=== PATIENT | male | born 1975 | race Caucasian/White ===

== ENCOUNTER 2024-04-20 12:33 | Inpatient (IN) | payer BC ==
[~2024-04-20] VITALS: Ht 177.8 cm; Wt 84.0 kg
--- NOTE | 2024-04-20 13:08 | ED.PDOC ---
GI ASSESSMENT HPI Comments 48 Y M, presents to the ED with CC of abdominal pain. Patient relays, that he has been experiencing RLQ abdominal pain since 0230 on 04/19/24, with associated nausea. Patient smokes tobacco, denies ETOH consumption, or illicit drug use. Patient denies fever, chills, body aches, dysuria, or vomiting/diarrhea. Chief Complaint: Abdominal Pain Time Seen by MD: 12:57 Reviewed Notes: Nurses Notes, Medications, Allergies Allergies: Coded Allergies: NO KNOWN ALLERGIES (Unverified , 04/20/24) Information Source: Patient Mode of Arrival: Ambulatory Duration: Since onset Prehospital treatment: None Quality: None Vomitus: None Stool: Normal Severity: None Recent: None Recent Hx of: None Pain Location: RLQ Modifying Factors: Nothing Associated sign and symptoms: None Past Medical History PAST MEDICAL HISTORY: Denies Surgical History: Denies all surgeries Family History Family History: Unknown Social History Smoker: Cigarettes Alcohol: Denies ETOH Use Drugs: Denies Drug Use Lives In: Home Constitutional: denies: chills, diaphoresis, fatigue, fever, malaise, sweats, weakness, others EENTM: denies: blurred vision, double vision, ear bleeding, ear discharge, ear drainage, ear pain, ear ringing, eye pain, eye redness, hearing loss, mouth pain, mouth swelling, nasal discharge, nose bleeding, nose congestion, nose pain, photophobia, tearing, throat pain, throat swelling, voice changes, others Respiratory: denies: cough, hemoptysis, orthopnea, SOB at rest, shortness of breath, SOB with excertion, stridor, wheezing, others Cardiovascular: denies: chest pain, dizzy spells, diaphoresis, Dyspnea on exer tion, edema, irregular heart beat, left arm pain, lightheadedness, palpitations, PND, syncope, others Gastrointestinal: reports: abdominal pain, nausea; denies: abdomen distended, blood streaked bowels, constipated, diarrhea, dysphagia, difficulty swallowing, hematemesis, melena, poor appetite, poor fluid intake, rectal bleeding, rectal pain, vomiting, others Genitourinary: denies: burning, dysuria, flank pain, frequency, hematuria, incontinence, penile discharge, penile sore, pain, testicle pain, testicle swelling, urgency, others Neurological: denies: dizziness, fainting, headache, left sided numbness, left sided weakness, numbness, paresthesia, pre-existing deficit, right sided numbness, right sided weakness, seizure, speech problems, tingling, tremors, weakness, others Musculoskeletal: denies: back pain, gout, joint pain, joint swelling, muscle pain, muscle stiffness, neck pain, others Integumetry: denies: bruises, change in color, change in hair/nails, dryness, laceration, lesions, lumps, rash, wounds, others Allergic/Immunocompromised: denies: Difficulty Healing, Frequent Infections, Hives, Itching, others Hematologic/Lymphatic: denies: anemia, blood clots, easy bleeding, easy bruising, swollen glands, others Endocrine: denies: excessive hunger, excessive sweating, excessive thirst, excessive urination, flushing, intolerance to cold, intolerance to heat, unexplained weight gain, unexplained weight loss, others Psychiatric: denies: anxiety, bipolar disorder, depression, hopeless, panic disorder, schizophrenia, sleepless, suicidal, others All Other Systems: Reviewed and Negative Physical Exam General Appearance: Moderate Distress HEENT: Normal ENT Inspection, Pharynx Normal, TMs Normal Neck: Full Range of Motion, Non-Tender, Normal, Normal Inspection Respiratory: Chest Non-Tender, Lungs Clear, No Accessory Muscle Use, No Respiratory Distress, Normal Breath Sounds Cardiovascular: No Edema, No JVD, No Murmur, No Gallop, Normal Peripheral Pulses, Regular Rate/Rhythm Breast Exam: Deferred Gastrointestinal: No Organomegaly, No Pulsatile Mass, Normal Bowel Sounds, RLQ, Soft, Tenderness Genitalia: Deferred Pelvic: Deferred Rectal: Deferred Extremities: No calf tenderness, Normal capillary refill, Normal inspection, Normal range of motion, Non-tender, No pedal edema Musculoskeletal : Apperance: Normal Neurologic: Alert, office auditor II-XII nml as Tested, No Motor Deficits, Normal Affect, Normal Mood, No Sensory Deficits Cerebellar Function: Normal Reflexes: Normal Skin: Dry, Normal Color, Warm Lymphatic: No Adenopathy Was a procedure done? Was a procedure done?: No GI differential Dx Differential Diagnosis: Appendicitis, Cholangitis, Cholecystitis, Gastritis/PUD, Gastroenteritis X-Ray, Labs, Meds, VS Vital Signs Date Time Temp Pulse Resp B/P (MAP) Pulse Ox O2 Delivery O2 Flow Rate FiO2 04/20/24 14:40 98.4 101 18 138/82 (100) 94 98.4 04/20/24 14:40 98.9 04/20/24 13:41 101.1 04/20/24 13:29 126 17 98 Room Air 04/20/24 13:29 101.1 126 17 114/77 (89) 98 101.1 04/20/24 12:45 99.4 134 18 133/76 (95) 96 Lab Test 04/20/24 13:17 Range/Units White Blood Count 14.9 H 4.4-10.8 10^3/uL Red Blood Count 4.94 4.5-5.90 10^6/uL Hemoglobin 14.7 13.5-17.5 g/dL Hematocrit 43.8 41.0-53.0 % Mean Corpuscular Volume 88.7 80.0-100.0 fL Mean Corpuscular Hemoglobin 29.7 28.0-32.0 pg Mean Corpuscular Hemoglobin Concent 33.5 32.0-36.0 g/dL Red Cell Distribution Width 13.4 11.8-14.3 % Platelet Count 240 140-450 10^3/uL Mean Platelet Volume 8.4 6.9-10.8 fL Neutrophils (%) (Auto) 92.6 H 37.0-80.0 % Lymphocytes (%) (Auto) 4.4 L 10.0-50.0 % Monocytes (%) (Auto) 2.9 0.0-12.0 % Eosinophils (%) (Auto) 0.0 0.0-7.0 % Basophils (%) (Auto) 0.1 0.0-2.0 % Neutrophils # (Auto) 13.8 H 1.6-8.6 10 ^3/uL Lymphocytes # (Auto) 0.7 0.4-5.4 10 ^3/uL Monocytes # (Auto) 0.4 0-1.3 10 ^3/uL Eosinophils # (Auto) 0 0-0.8 10 ^3/uL Basophils # (Auto) 0 0-0.2 10 ^3/uL Nucleated Red Blood Cells 0.0 % Prothrombin Time 10.9 9.3-11.8 sec Prothrombin Time INR 1.03 0.9-1.15 Activated Partial Thromboplast Time 27.3 24.5-34.5 SEC Sodium Level 135 L 136-145 mmol/L Potassium Level 4.3 3.5-5.1 mmol/L Chloride Level 106 98-107 mmol/L Carbon Dioxide Level 26 20-31 mmol/L Anion Gap 3 L 5-15 Blood Urea Nitrogen 13 9-23 mg/dL Creatinine 1.12 0.700-1.30 mg/dL Glomerular Filtration Rate Calc 82 >90 mL/min BUN/Creatinine Ratio 11.6 10.0-20.0 Serum Glucose 114 H 74-106 mg/dL Calcium Level 10.2 8.7-10.4 mg/dL Current Medications Medications (Trade) Dose Ordered Sig/Nathan Route Start Time Stop Time Status Last Admin Ondansetron HCl (Zofran) 4 mg ONCE ONCE IV 04/20/24 13:15 04/20/24 13:16 DC 04/20/24 13:44 Sodium Chloride 1,000 ml @ 1,000 mls/hr Q1H ONCE IVB 04/20/24 13:15 04/20/24 14:14 DC 04/20/24 13:44 Ketorolac Tromethamine (Toradol Injection) 30 mg ONCE ONCE IV 04/20/24 13:15 04/20/24 13:16 DC 04/20/24 13:44 Acetaminophen (Tylenol Tablet Or Capsule) 1,000 mg ONCE ONCE PO 04/20/24 13:45 04/20/24 13:46 DC 04/20/24 13:41 Piperacillin Sod/ Tazobactam Sod 100 ml @ 100 mls/hr ONCE ONCE IV 04/20/24 14:15 04/20/24 15:14 DC 04/20/24 14:20 CT ABD PEL: FINDINGS: Right basilar atelectasis. Partially visualized heart is unremarkable. Liver, spleen, gallbladder, pancreas and adrenal glands unremarkable. Kidneys, ureters and urinary bladder unremarkable. Prostate is unremarkable. Tiny hiatal hernia. Mild gastric wall thickening. Small bowel loops unremarkable. Appendix measures up to 7 mm with fat stranding adjacent to the appendix and right paracolic gutter. Scattered colonic diverticulosis without diverticulitis. The large bowel is otherwise unremarkable. No evidence of intraperitoneal free air or free fluid. No evidence of aortic aneurysm. Minimal atherosclerotic calcification of the aorta and bilateral iliacs. Small fat containing left inguinal hernia. Minimal fat stranding of the bilateral posterolateral hip subcutaneous fat. No destructive Osseous lesions are noted. IMPRESSION: Appendix measures up to 7 mm with fat stranding adjacent to the appendix and right paracolic gutter. Correlate for acute appendicitis. Mild gastric wall thickening. Correlate for mild gastritis. ATED BY: ISABEL ROGER DO DICTATED DATE/TIME: 04/20/241336 SIGNED BY: ISABEL ROGER DO SIGNED DATE/TIME: 04/20/241336 CC: IV Hep-Lock was established. The patient was given Zofran 4 mg IV push for the nausea The patient was given a 1 L bolus of normal saline For the pain, the patient was given ketorolac 30 mg IV push The patient was also given acetaminophen 1000 mg p.o. for the fever At this time, the patient had a CT scan which shows a acute appendicitis We called Dr. Cuadra who is the surgeon on-call. The patient was then taken to the operating room. In the meantime, the patient was also given Zosyn IV piggyback The patient was also typed and screened The patient was admitted Images Reviewed?: Images reviewed and evaluated by me Time of 1ST Reevaluation: 13:27 Reevaluation 1ST: Unchanged Patient Education/Counseling: Diagnosis, Treatment, Prognosis Family Education/Counseling: No Family Present Departure 1 Departure Time of Disposition: 15:27 Impression: Primary Impression: Intractable abdominal pain Additional Impression: Acute appendicitis Qualified Codes: K35.80 - Unspecified acute appendicitis Disposition: ADMITTED INPATIENT Admit to: Med Surg Condition: Fair Critical Care Note Critical Care Time?: No Stability Stability form required: Yes Unstable for transfer: ED Physician Assesment (Clinical assesment) Heart Score Heart Score: Heart Score Response (Comments) Value History N/A 0 EKG N/A 0 Age N/A 0 Risk Factors N/A 0 Troponin N/A 0 Total 0 I personally scribed for FARNAZ ROBISON MD ([email or web address]) on 04/20/24 at 13:08. Electronically submitted by Karen Purcell ([email or web address]). I personally scribed for FARNAZ ROBISON MD ([email or web address]) on 04/20/24 at 13:59. Electronically submitted by Karen Purcell ([email or web address]). I personally scribed for FARNAZ ROBISON MD ([email or web address]) on 04/20/24 at 14:13. Electronically submitted by Karen Purcell [email or web address]). FARNAZ ROBISON MD Apr 20, 2024 13:08
--- NOTE | 2024-04-20 13:39 | DVH ---
Exam: CT CT AB PEL WO CON-NO ORAL OR IV History: rlq pain Comparison Study: None available at time of dictation. TECHNIQUE: Multidetector CT of the abdomen and pelvis without contrast. Axial, coronal and sagittal m ultiplanar reformats were obtained from the axial data set by the technologist. Radiation Dose Information: CT Dose: CTDI volume is 7.83 mGy. Dose-length product is 479.2 mGy*cm FINDINGS: Right basilar atelectasis. Partially visualized heart is unremarkable. Liver, spleen, gallbladder, pancreas and adrenal glands unremarkable. Kidneys, ureters and urinary bladder unremarkable. Prostate is unremarkable. Tiny hiatal hernia. Mild gastric wall thickening. Small bowel loops unremarkable. Appendix measures up to 7 mm with fat stranding adjacent to the appendix and right paracolic gutter. Scattered colonic diverticulosis without diverticulitis. The large bowel is otherwise unremarkable. No evidence of intraperitoneal free air or free fluid. No evidence of aortic aneurysm. Minimal atherosclerotic calcification of the aorta and bilateral tiffany acs. Small fat containing left inguinal hernia. Minimal fat stranding of the bilateral posterolateral hip subcutaneous fat. No destructive Osseous lesions are noted. IMPRESSION: Appendix measures up to 7 mm with fat stranding adjacent to the appendix and right paracolic gutter. Correlate for acute appendicitis. Mild gastric wall thickening. Correlate for mild gastritis.
[2024-04-20] MEDS: ACETAMINOPHEN 500 MG TAB or CAP PO ONE (13:41)
[2024-04-20] MEDS: KETOROLAC TROMETH 30 MG/ML 1ML VIAL IV ONE ×2 (13:44→17:50)
[2024-04-20] MEDS: ONDANSETRON HCL 4 MG/2 ML VIAL IV ONE ×2 (13:44→17:30)
[2024-04-20] MEDS: SODIUM CHLORIDE 0.9% 1,000 ML IVB ONE (13:44)
[2024-04-20 13:51] LABS: Chloride 106 mmol/L (98-107); Potassium 4.3 mmol/L (3.5-5.1)
[2024-04-20 13:52] LABS: Anion Gap 3 (5-15); Carbon Dioxide 26 mmol/L (20-31)
[2024-04-20 13:53] LABS: Calcium 10.2 mg/dL (8.7-10.4)
[2024-04-20 13:54] LABS: Sodium 135 mmol/L (136-145)
[2024-04-20 13:57] LABS: BUN/Creatinine Ratio 11.6 (10.0-20.0); Blood Urea Nitrogen 13 mg/dL (9-23)
[2024-04-20 14:13] LABS: Glucose 114 mg/dL (74-106)
[2024-04-20 14:14] LABS: Basophils # (auto) 0 10 ^3/uL (0-0.2); Basophils % (auto) 0.1 % (0.0-2.0); Eosinophils # (auto) 0 10 ^3/uL (0-0.8); Hematocrit 43.8 % (41.0-53.0); Hemoglobin 14.7 g/dL (13.5-17.5); Lymphocytes # (auto) 0.7 10 ^3/uL (0.4-5.4); Lymphocytes % (auto) 4.4 % (10.0-50.0); Mean Corpuscular Hemoglobin 29.7 pg (28.0-32.0); Mean Corpuscular Hgb Conc. 33.5 g/dL (32.0-36.0); Mean Corpuscular Volume 88.7 fL (80.0-100.0); Monocytes # (auto) 0.4 10 ^3/uL (0-1.3); Monocytes % (auto) 2.9 % (0.0-12.0); Neutrophils # (auto) 13.8 10 ^3/uL (1.6-8.6); Neutrophils % (auto) 92.6 % (37.0-80.0); Platelet Count (auto) 240 10^3/uL (140-450); Red Blood Cells 4.94 10^6/uL (4.5-5.90); Red Cell Distribution Width 13.4 % (11.8-14.3); White Blood Cell 14.9 10^3/uL (4.4-10.8)
[2024-04-20] MEDS: PIPERACILLIN-TAZOB 3.375GM 100 ML IV ONE (14:20)
[2024-04-20 14:38] LABS: INR 1.03 (0.9-1.15); Partial Thromboplastin Time 27.3 SEC (24.5-34.5); Prothrombin Time 10.9 sec (9.3-11.8)
[2024-04-20] MEDS: SODIUM CHLORIDE 0.9% 1,000 ML IV ONE (15:00)
--- NOTE | 2024-04-20 15:12 | DVHHP2 ---
History of Present Illness Reason for Visit: Abdominal pain History of Present Illness 48-year-old male no medical history surgical history chief complaint patient complain of abdominal pain he has been dealing with a since this morning. Patient states the abdominal pain accompanied some nausea and vomiting. He states the pain in his right lower quadrant he did not have subjective fevers. He denies any chest pain no shortness with the breath patient states he has not had any issues with medical problems in the past this is like his first time in the hospital since he was a kid. When evaluating patient's labs and imaging CT scan of the abdomen pelvis shows appendicitis without perforation abscess and gastritis. White count was 14.9 sodium was 135 otherwise CBC and CMP unremarkable Tylenol Toradol normal saline was provided Zofran. With these findings we will admit and ask for General surgery evaluation Past Medical History Denies any medical history Past Surgical History Denies surgical history Family History Reviewed, non-contributory to the management of this case. Past Social History The patient lives at home, denies smoking, alcohol or illicit drugs abuse. Review of Systems Constitutional: No: Fever, Chills, Sweats, Weakness, Malaise, Other Eyes: No: Pain, Vision change, Conjunctivae inflammation, Eyelid inflammation, Other, Redness ENT: No: Ear pain, Ear discharge, Nose pain, Nose discharge, Nose congestion, Mouth pain, Mouth swelling, Throat pain, Throat swelling, Other Respiratory: No: Cough, Dry, Shortness of breath, SOB with excertion, Wheezing, Hemoptysis, Pleuritic Pain, Sputum, Wheezing, Other Cardiovascular: No: Chest Pain, Palpitations, Orthopnea, Paroxysmal Noc. Dyspnea, Edema, Lt Headedness, Other Gastrointestinal: Nausea, Vomiting, Abdominal Pain; No: Diarrhea, Constipation, Melena, Hematochezia, Other Genitourinary: No Dysuria, No Frequency, No Incontinence, No Hematuria, No Retention, No Other Musculoskeletal: No: other, neck pain, shoulder pain, arm pain, back pain, hand pain, leg pain, foot pain Skin: No: Rash, Lesions, Jaundice, Bruising, Other Neurological: No: Weakness, Numbness, Incoordination, Change in speech, Confusion, Seizures, Other Allergies: Coded Allergies: NO KNOWN ALLERGIES (Unverified , 04/20/24) Exam Vital Signs Vital Signs Date Time Temp Pulse Resp B/P (MAP) Pulse Ox O2 Delivery O2 Flow Rate FiO2 04/20/24 14:40 98.4 101 18 138/82 (100) 94 98.4 04/20/24 13:29 Room Air General Appearance: Alert, Oriented X3, Cooperative, No acute distress HEENT: Atraumatic, PERRLA, EOMI, Mucous membr. moist/pink Respiratory: Clear to auscultation, Normal air movement Cardiovascular: Regular rate, Normal S1, Normal S2, No murmurs Abdominal: Normal bowel sounds, Soft, Other (right lower abd pain guarding rebound tenderness ) Extremities: No clubbing, No cyanosis, No edema, Normal pulses, No tenderness/swelling Skin: No rashes, No breakdown, No significant lesion Neuro: Normal gait, Normal speech, Strength at 5/5 X4 ext, Normal tone, Sensation intact, Cranial nerves 3-12 NL Psych/Mental Status: Mental status NL, Mood NL Labs/Xrays CT scan of the abdomen and pelvis found to have acute appendicitis without abscess or perforation and gastritis I reviewed labs, imaging CT scan abdomen pelvis, EKG and all diagnostic studies on this patient from ED records and the medical chart Labs Test 04/20/24 13:17 Range/Units White Blood Count 14.9 H 4.4-10.8 10^3/uL Red Blood Count 4.94 4.5-5.90 10^6/uL Hemoglobin 14.7 13.5-17.5 g/dL Hematocrit 43.8 41.0-53.0 % Mean Corpuscular Volume 88.7 80.0-100.0 fL Mean Corpuscular Hemoglobin 29.7 28.0-32.0 pg Mean Corpuscular Hemoglobin Concent 33.5 32.0-36.0 g/dL Red Cell Distribution Width 13.4 11.8-14.3 % Platelet Count 240 140-450 10^3/uL Mean Platelet Volume 8.4 6.9-10.8 fL Neutrophils (%) (Auto) 92.6 H 37.0-80.0 % Lymphocytes (%) (Auto) 4.4 L 10.0-50.0 % Monocytes (%) (Auto) 2.9 0.0-12.0 % Eosinophils (%) (Auto) 0.0 0.0-7.0 % Basophils (%) (Auto) 0.1 0.0-2.0 % Neutrophils # (Auto) 13.8 H 1.6-8.6 10 ^3/uL Lymphocytes # (Auto) 0.7 0.4-5.4 10 ^3/uL Monocytes # (Auto) 0.4 0-1.3 10 ^3/uL Eosinophils # (Auto) 0 0-0.8 10 ^3/uL Basophils # (Auto) 0 0-0.2 10 ^3/uL Nucleated Red Blood Cells 0.0 % Prothrombin Time 10.9 9.3-11.8 sec Prothrombin Time INR 1.03 0.9-1.15 Activated Partial Thromboplast Time 27.3 24.5-34.5 SEC Sodium Level 135 L 136-145 mmol/L Potassium Level 4.3 3.5-5.1 mmol/L Chloride Level 106 98-107 mmol/L Carbon Dioxide Level 26 20-31 mmol/L Anion Gap 3 L 5-15 Blood Urea Nitrogen 13 9-23 mg/dL Creatinine 1.12 0.700-1.30 mg/dL Glomerular Filtration Rate Calc 82 >90 mL/min BUN/Creatinine Ratio 11.6 10.0-20.0 Serum Glucose 114 H 74-106 mg/dL Calcium Level 10.2 8.7-10.4 mg/dL Assessment/Plan Assessment/Plan acute appendicitis without abscess found on ct scan order N.p.o. for now ordered zosyn IV fluids ordered General surgery consult follow-up recs Type and screen ordered Morphine and Zofran ordered Protonix acute leukocytosis ordered zosyn acute gastritis ordered protonix fen/ppx npo ivf scd no dvt ppx since pt is ambulatory protonix for now plan admit to medicine for surgical consult Plan discussed with: Patient Date of Service: Apr 20, 2024 Billing Provider: DIMA KHALIL DNP Common Visit Codes: 31009-[id number] INP/OBS CARE (HIGH) DIMA KHALLI DNP Apr 20, 2024 15:12
[2024-04-20] MEDS: SODIUM CHLORIDE 0.9% 2,200 ML IV ONE (15:15)
[2024-04-20] MEDS ORDERED: fentaNYL CITRATE 100 MCG/2 ML VL ONE (15:49)
[2024-04-20] MEDS ORDERED: MEPERIDINE HCL (25 MG/ML) 1ML VIAL ONE (15:49)
[2024-04-20] MEDS ORDERED: MIDAZOLAM HCL 2MG/2ML 2ml VIAL (1mg/ml) ONE (15:49)
[2024-04-20] MEDS: SODIUM CHLORIDE 0.9% 1,000 ML IV SCH (16:00)
[2024-04-20] MEDS ORDERED: DOCUSATE SOD 100 MG CAP PO PRN (16:00)
[2024-04-20] MEDS ORDERED: NITROGLYCERIN 0.4 MG SL TAB SL PRN (16:00)
[2024-04-20] MEDS ORDERED: TEMAZEPAM 15 MG CAP PO PRN (16:00)
[2024-04-20] MEDS ORDERED: ONDANSETRON HCL 4 MG/2 ML VIAL IV PRN (16:00)
--- NOTE | 2024-04-20 16:12 | DVHINCON2 ---
Date of service: Apr 20, 2024 Allergies: Coded Allergies: NO KNOWN ALLERGIES (Unverified , 04/20/24) Current Medications Current Medications Medications (Trade) Dose Ordered Sig/Nathan Route PRN Reason Start Time Stop Time Status Last Admin Piperacillin Sod/ Tazobactam Sod 100 ml @ 25 mls/hr Q6HR IV 04/20/24 18:00 UNV Sodium Chloride 1,000 ml @ 120 mls/hr Q8H20M IV 04/20/24 16:00 UNV Temazepam (Restoril) 15 mg QHSP PRN PO FOR INSOMNIA 04/20/24 16:00 UNV Ondansetron HCl (Zofran) 4 mg Q4HP PRN IV NAUSEA / VOMITING 04/20/24 16:00 UNV Docusate Sodium (Colace Capsule) 100 mg BIDPRN PRN PO FOR CONSTIPATION 04/20/24 16:00 UNV Morphine Sulfate 2 mg Q4HPRN PRN IV SEVERE PAIN (7-10 PAIN SCALE) 04/20/24 16:00 UNV Nitroglycerin (Ntrostat Sublingual) 0.4 mg Q5MINP PRN SL FOR CHEST PAIN 04/20/24 16:00 UNV Vital Signs Vital Signs Date Time Temp Pulse Resp B/P (MAP) Pulse Ox O2 Delivery O2 Flow Rate FiO2 04/20/24 14:40 98.4 101 18 138/82 (100) 94 98.4 04/20/24 13:29 Room Air Labs/Diagnostic Data Labs Test 04/20/24 13:17 Range/Units White Blood Count 14.9 H 4.4-10.8 10^3/uL Red Blood Count 4.94 4.5-5.90 10^6/uL Hemoglobin 14.7 13.5-17.5 g/dL Hematocrit 43.8 41.0-53.0 % Mean Corpuscular Volume 88.7 80.0-100.0 fL Mean Corpuscular Hemoglobin 29.7 28.0-32.0 pg Mean Corpuscular Hemoglobin Concent 33.5 32.0-36.0 g/dL Red Cell Distribution Width 13.4 11.8-14.3 % Platelet Count 240 140-450 10^3/uL Mean Platelet Volume 8.4 6.9-10.8 fL Neutrophils (%) (Auto) 92.6 H 37.0-80.0 % Lymphocytes (%) (Auto) 4.4 L 10.0-50.0 % Monocytes (%) (Auto) 2.9 0.0-12.0 % Eosinophils (%) (Auto) 0.0 0.0-7.0 % Basophils (%) (Auto) 0.1 0.0-2.0 % Neutrophils # (Auto) 13.8 H 1.6-8.6 10 ^3/uL Lymphocytes # (Auto) 0.7 0.4-5.4 10 ^3/uL Monocytes # (Auto) 0.4 0-1.3 10 ^3/uL Eosinophils # (Auto) 0 0-0.8 10 ^3/uL Basophils # (Auto) 0 0-0.2 10 ^3/uL Nucleated Red Blood Cells 0.0 % Prothrombin Time 10.9 9.3-11.8 sec Prothrombin Time INR 1.03 0.9-1.15 Activated Partial Thromboplast Time 27.3 24.5-34.5 SEC Sodium Level 135 L 136-145 mmol/L Potassium Level 4.3 3.5-5.1 mmol/L Chloride Level 106 98-107 mmol/L Carbon Dioxide Level 26 20-31 mmol/L Anion Gap 3 L 5-15 Blood Urea Nitrogen 13 9-23 mg/dL Creatinine 1.12 0.700-1.30 mg/dL Glomerular Filtration Rate Calc 82 >90 mL/min BUN/Creatinine Ratio 11.6 10.0-20.0 Serum Glucose 114 H 74-106 mg/dL Calcium Level 10.2 8.7-10.4 mg/dL Assessment [id number] AC APPENDICITIS LAP/OPEN APPENDECTOMY Plan discussed with: Patient LOIS CHOWDHURY MD Apr 20, 2024 16:12
--- NOTE | 2024-04-20 16:17 | DVHINCON2 ---
DATE OF CONSULTATION: 04/20/2024 HISTORY OF PRESENT ILLNESS: This patient is 48 years old, coming in with right lower abdominal pain, started this morning. Came to the Emergency Room. Some nausea. No vomiting, no constipation or diarrhea. No hematemesis or melena. No bleeding per rectum. PAST MEDICAL HISTORY: No diabetes, hypertension. PAST SURGICAL HISTORY: Hunters teeth extraction. PHYSICAL EXAMINATION: VITAL SIGNS: Afebrile, stable signs. HEENT: With no evidence of pallor, cyanosis, or jaundice. NECK: Supple, nontender with no thyromegaly, lymphadenopathy. CHEST AND LUNGS: Clear. HEART: Within normal limits. ABDOMEN: Soft, tender in the right lower quadrant, evidence of rebound. EXTREMITIES: Unremarkable. NEUROLOGIC: He is intact. CLINICAL IMPRESSION: Acute appendicitis. PLAN: Laparoscopic, possible open appendectomy. Benefits, risks discussed and a consent obtained. MD CYRIL Bowling/RALEIGH TID: [id number] RECEIPT: [id number] cc: Simin Andrea
[2024-04-20] MEDS ORDERED: ONDANSETRON HCL 4 MG/2 ML VIAL ONE (16:47)
[2024-04-20] MEDS ORDERED: DexAMETHasone SOD PHOS 10MG/1ML VIAL INJ ONE (16:47)
[2024-04-20] MEDS ORDERED: PROPOFOL 10 MG/ML 20 ML IV ONE (16:47)
[2024-04-20] MEDS ORDERED: SUGAMMADEX 200mg/2ml Vial (100MG/ML) IV ONE (17:17)
[2024-04-20] MEDS ORDERED: MORPHINE SULFATE 4 MG/ML SYR/VIAL IV PRN (17:30)
[2024-04-20] MEDS ORDERED: ePHEDrine SULFATE 50 MG/ML AMP IV PRN (17:30)
[2024-04-20] MEDS ORDERED: HYDROmorphone HCL 2 MG/ML VL/or syr IV PRN (17:30)
[2024-04-20] MEDS ORDERED: hydrALAZINE HCL 20 MG/ML VL IV PRN (17:30)
[2024-04-20] MEDS ORDERED: fentaNYL CITRATE 100 MCG/2 ML VL IV PRN (17:30)
[2024-04-20] MEDS ORDERED: MIDAZOLAM HCL 2MG/2ML 2ml VIAL (1mg/ml) IV PRN (17:30)
--- NOTE | 2024-04-20 17:30 | DVHOP2 ---
Operative Report [id number] AC APPENDICITIS INTRAABD ABSCESS DRAIN INTRAABD ABSCESS LAP APPENDECTOMY EBL 25 CC NO DRAINS NO COMPLICATIONS LOIS CHOWDHURY MD Apr 20, 2024 17:30
[2024-04-20 17:40] VITALS: PULSE 101; RESP 11; O2SAT 95
--- NOTE | 2024-04-20 17:55 | DVHOP ---
DATE OF SURGERY: 04/20/2024 PREOPERATIVE DIAGNOSES: * Acute appendicitis. * Intra-abdominal abscess. POSTOPERATIVE DIAGNOSES: * Acute appendicitis. * Intra-abdominal abscess. PROCEDURE: Drainage of intra-abdominal abscess with laparoscopic appendectomy. SURGEON: Dr. Lux Cuadra. METAL FABRICATOR: None. ANESTHESIA: General. ESTIMATED BLOOD LOSS: Close to 25 mL. DRAINS: No drains were used. COMPLICATIONS: No complications were encountered. DESCRIPTION OF PROCEDURE: The patient was prepped and draped in the usual sterile fashion in the supine position, and a supraumbilical incision was applied and was taken down to the fascia. The Veress needle was introduced, and CO2 insufflation was started to a pressure of 15 mmHg. The needle was withdrawn, replaced by the 12 mm trocar, and a telescope introduced and the appendix was found acutely inflamed, distended and closely adherent to the right lower abdomen. Intraabdominal abscess was also noted. Two 5 mm ports were applied more inferiorly, one above the symphysis, one between the upper two. The patient was placed in Trendelenburg and in right upper lateral position, the abscess was drained out. The camera was moved to the lowermost 5 mm port. The operative ports were used for surgery. The mesoappendix was clipped at the base, divided distal to that using Harmonic device. The base of the appendix was cleared for transection using the Endo-HANNA stapling device, and the appendix was released in this fashion and was retrieved from the supraumbilical wound in the Endo-Catch bag without any complication. Hemostasis was secured. Irrigation fluid was removed. The port sites were free from bleeding. Marina powder was applied to the right lower quadrant for hemostasis, as well as SNoW coagulant; and with this being done, the patient was then placed back supine, the trocars were free from bleeding, the CO2 was let out, the irrigation fluid was removed, and Endo-Close suture used for the fascial closure of the supraumbilical wound. All the ports were withdrawn after all the CO2 been let out, and the patient was placed in supine, the wounds were then brought together using 3-0 Monocryl suture in a subcuticular fashion. Surgical glue was applied. The patient tolerated the procedure well, and was taken back to recovery room in stable condition. MD CYRIL Bowling/ERENDIRA TID: [id number] RECEIPT: [id number] cc: DIMA KHALIL
[2024-04-20] MEDS: LIDOCAINE HCL (LOCAL ANESTH.) 0.5 % 50ML MDV IJ ONE (17:57)
[2024-04-20] MEDS: LIDOCAINE 2% JELLY 11ml (GLYDO) ONE (17:57)
[2024-04-20] MEDS: SUCCINYLCHOLINE CHLORIDE 20 MG/ML 10ML VIAL IV ONE (17:58)
[2024-04-20] MEDS: HYDROmorphone HCL 2 MG/ML VL/or syr IV PRN (18:06)
[2024-04-20] MEDS: PIPERACILLIN-TAZOB 3.375GM 100 ML IV SCH (19:49)
[2024-04-20 20:00] VITALS: PULSE 78; RESP 20; O2SAT 95
[2024-04-20 21:00] VITALS: BP 100/66; PULSE 78; RESP 20; TEMP 98.5; O2SAT 95
[2024-04-21 01:00] VITALS: BP 138/78; PULSE 82; RESP 16; TEMP 97.7; O2SAT 97
[2024-04-21] MEDS: MORPHINE SULFATE INJ 2 MG/ml SYRG IV PRN (02:29)
[2024-04-21] MEDS: KETOROLAC TROMETH 30 MG/ML 1ML VIAL IV ONE (06:49)
[2024-04-21 07:56] LABS: Alanine Aminotransferase 16 U/L (7-40); Albumin 3.8 g/dL (3.2-4.8); Anion Gap 7 (5-15); BUN/Creatinine Ratio 13.2 (10.0-20.0); Bilirubin, Total 0.9 mg/dL (0.2-1.0); Blood Urea Nitrogen 14 mg/dL (9-23); Calcium 9.5 mg/dL (8.7-10.4); Carbon Dioxide 25 mmol/L (20-31); Potassium 3.9 mmol/L (3.5-5.1); Sodium 139 mmol/L (136-145); Total Protein 6.2 g/dL (5.7-8.2)
[2024-04-21 08:02] LABS: Basophils # (auto) 0 10 ^3/uL (0-0.2); Eosinophils # (auto) 0 10 ^3/uL (0-0.8); Hematocrit 35.9 % (41.0-53.0); Hemoglobin 12.3 g/dL (13.5-17.5); Lymphocytes # (auto) 0.8 10 ^3/uL (0.4-5.4); Mean Corpuscular Hemoglobin 30.7 pg (28.0-32.0); Mean Corpuscular Hgb Conc. 34.2 g/dL (32.0-36.0); Mean Corpuscular Volume 89.6 fL (80.0-100.0); Monocytes # (auto) 0.2 10 ^3/uL (0-1.3); Neutrophils # (auto) 9.8 10 ^3/uL (1.6-8.6); Nucleated Red Blood Cells % 0.1 %; Platelet Count (auto) 203 10^3/uL (140-450); Red Blood Cells 4.01 10^6/uL (4.5-5.90); Red Cell Distribution Width 13.5 % (11.8-14.3); White Blood Cell 10.8 10^3/uL (4.4-10.8)
[2024-04-21 08:08] LABS: Alkaline Phosphatase 45 U/L (46-116); Aspartate Aminotransferase 10 U/L (13-40); Chloride 107 mmol/L (98-107); Glucose 134 mg/dL (74-106)
[2024-04-21 08:42] VITALS: BP 105/68; PULSE 67; RESP 18; TEMP 98.1; O2SAT 97
[2024-04-21 13:00] VITALS: BP 110/60; PULSE 85; RESP 16; TEMP 98; O2SAT 94
--- NOTE | 2024-04-21 13:04 | DVHPN2 ---
Progress Note Date Seen: Apr 21, 2024 Medical Necessity Reason Pt with a Central, PICC or Fol: No Objective vital signs Vital Sign Date Time Temp Pulse Resp B/P (MAP) Pulse Ox O2 Delivery O2 Flow Rate FiO2 04/21/24 08:42 98.1 67 18 105/68 (80) 97 98.1 04/21/24 08:00 Room Air* 0 21 Total Intake and Output 04/20/24 04/20/24 04/21/24 15:00 23:00 07:00 Intake Total 1000 ml 850 ml Balance 1000 ml 850 ml medications Current Medications Medications Dose Ordered Sig/Nathan Route Start Time Stop Time Status Last Admin Dose Admin Piperacillin Sod/ Tazobactam Sod 100 ml @ 25 mls/hr Q6H IV 04/20/24 20:00 04/21/24 09:23 25 MLS/HR Sodium Chloride 1,000 ml @ 120 mls/hr Q8H20M IV 04/20/24 16:00 04/21/24 00:20 120 MLS/HR Temazepam 15 mg QHSP PRN PO 04/20/24 16:00 Ondansetron HCl 4 mg Q4HP PRN IV 04/20/24 16:00 Docusate Sodium 100 mg BIDPRN PRN PO 04/20/24 16:00 Morphine Sulfate 2 mg Q4HPRN PRN IV 04/20/24 16:00 04/21/24 02:29 2 MG Nitroglycerin 0.4 mg Q5MINP PRN SL 04/20/24 16:00 laboratory and microbiology Laboratory Tests 04/21/24 05:48 Test 04/21/24 05:48 Range/Units Serum Glucose 134 H 74-106 mg/dL Problem List/Assessment/Plan Problem List/Assessment/Plan AFEBRILE VSS ABD SOFT NO BM RICHARD CLEAR LIQUIDS WOUNDS HEALING NO COMPLICATIONS FULL LIQUIDS ABX Plan discussed with: Patient My Orders My Orders Orders - LOIS CHOWDHURY MD Procedure Category Date Status Time Obtain Consent For: ORDERS 04/20/24 Transmitted 15:09 Obtain Consent For ALISIA 04/20/24 In Process Anesthesia 15:09 Clear Liq Diet DIET 04/20/24 Transmitted Dinner LOIS CHOWDHURY MD Apr 21, 2024 13:04
[2024-04-21] MEDS: KETOROLAC TROMETH 30 MG/ML 1ML VIAL IV PRN (13:58)
--- NOTE | 2024-04-21 15:25 | DVHPNRES ---
Progress Note Date Seen: Apr 21, 2024 Resident Creating Document: CANDACE FREDERICK RESIDENT Medical Necessity Reason Pt with a Central, PICC or Fol: No Subjective Review of Systems Patient is a 48-year-old male with no significant past medical history came in due to abdominal pain. According to the patient, the abdominal pain started abruptly at 2am, the pain progressively got worse. Patient notes the pain initially started in the midepigastric region and eventually evolved into a right upper quadrant pain, 9/10 in intensity exacerbated by standing up or touching. Patient also notes having 2 episodes of diarrhea, hot flashes and sweating. CT abdomen pelvis showed appendix measuring 7 mm with fat stranding adjacent to the appendix and right paracolic gutter. Patient underwent laparoscopic appendectomy, patient is postoperative day 1 today on 04/21/2024. 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 Denies using tobacco. Drinks alcohol once a week, 1 drink. Denies using drugs. Allergies: Denies Patient seen and examined at bedside. Patient is alert and oriented to time, place person and responding to all questions. Eyes: No Pain, No Vision change, No Conjunctivae inflammation, No Eyelid inflammation, No Other, No Redness ENT: No Ear pain, No Ear discharge, No Nose pain, No Nose discharge, No Nose congestion, No Mouth pain, No Mouth swelling, No Throat pain, No Throat swelling, No Other Cardiovascular: No Chest Pain, No Palpitations, No Orthopnea, No Paroxysmal No Dyspnea, No Edema, No Lt Headedness, No Other Respiratory: No Cough, No Dry, No Shortness of breath, No SOB with exertion, No Wheezing, No Hemoptysis, No Pleuritic Pain, No Sputum, No Other Gastrointestinal: No Nausea, No Vomiting, No Abdominal Pain, No Diarrhea, No Constipation, No Melena, No Hematochezia, No Other Genitourinary: No Dysuria, No Frequency, No Incontinence, No Hematuria, No Retention, No Other Musculoskeletal: No other, No neck pain, No shoulder pain, No arm pain, No back pain, No hand pain, No leg pain, No foot pain Skin: No Rash, No Lesions, No Jaundice, No Bruising, No Other Objective vital signs Vital Sign Date Time Temp Pulse Resp B/P (MAP) Pulse Ox O2 Delivery O2 Flow Rate FiO2 04/21/24 13:00 98.0 85 16 110/60 (77) 94 98.0 04/21/24 08:00 Room Air* 0 21 Total Intake and Output 04/20/24 04/20/24 04/21/24 15:00 23:00 07:00 Intake Total 1000 ml 850 ml Balance 1000 ml 850 ml medications Current Medications Medications Dose Ordered Sig/Nathan Route Start Time Stop Time Status Last Admin Dose Admin Piperacillin Sod/ Tazobactam Sod 100 ml @ 25 mls/hr Q6H IV 04/20/24 20:00 04/21/24 13:57 25 MLS/HR Sodium Chloride 1,000 ml @ 120 mls/hr Q8H20M IV 04/20/24 16:00 04/21/24 00:20 120 MLS/HR Temazepam 15 mg QHSP PRN PO 04/20/24 16:00 Ondansetron HCl 4 mg Q4HP PRN IV 04/20/24 16:00 Docusate Sodium 100 mg BIDPRN PRN PO 04/20/24 16:00 Nitroglycerin 0.4 mg Q5MINP PRN SL 04/20/24 16:00 Ketorolac Tromethamine 20 mg Q6HPRN PRN IV 04/21/24 13:15 04/26/24 13:14 04/21/24 13:58 20 MG Examination General Appearance: Cooperative. Well developed. Well nourished. NAD Head Exam: Normal inspection Neck Exam: Normal inspection. Non-tender. Normal alignment Pulmonary/Respiratory: Chest non-tender. Clear bilateral breath sounds, no crackles, no wheezing. Cardiovascular/Chest: Regular rate and rhythm. No murmurs. No JVD. Peripheral Pulses: 2+ Radial (R). 2+ Radial (L). 2+ Pedal (R). 2+ Pedal (L) Abdominal Exam: Normal bowel sounds. Soft. Three laparoscopic incisions noted without erythema, purulence, no visible veins, Nontender. No hepatospenomegaly. No masses Ankle Exam: Negative ankle edema Lower extremities: Negative lower extremity edema Neuro/Mental Status: A&O x4. Coherent. Thoughts/Psych: Normal thought pattern. Appropriate mood and affect. Good judgement and insight Skin Exam: Normal inspection. Normal color. Warm. Dry laboratory and microbiology Laboratory Tests 04/21/24 05:48 Test 04/21/24 05:48 Range/Units Serum Glucose 134 H 74-106 mg/dL Labs and/or images reviewed: Labs reviewed by me, Image(s) reviewed by me Problem List/Assessment/Plan Problem List/Assessment/Plan Acute appendicitis, status post laparoscopic appendectomy Gastritis - CT abdomen pelvis: Appendix measures up to 7 mm with fat stranding adjacent to the appendix and right paracolic gutter. Correlate for acute appendicitis. Mild gastric wall thickening. Correlate for mild gastritis. - postoperative day 1 - IV NS at 120 cc/hour - IV Zosyn - IV ketorolac 20 mg q.6 hours for moderate pain as needed Goals of care: Full code, discussed for >16 minutes on 04/21/2024 Plan discussed with patient Plan discussed with Dr. Escalante Plan discussed with: Patient, Other (RN) Date of Service: Apr 21, 2024 Billing Provider: TETE ESCALANTE MD Common Visit Codes: [id number] INP/OBS CARE(HIGH) CANDACE FREDERICK RESIDENT Apr 21, 2024 15:25 TETE ESCALANTE MD Apr 24, 2024 21:48
[2024-04-21 16:35] VITALS: BP 106/66; PULSE 66; RESP 18; TEMP 97.8; O2SAT 96
[2024-04-21 20:00] VITALS: PULSE 75; RESP 18
[2024-04-21 21:00] VITALS: BP 102/66; PULSE 75; RESP 18; TEMP 98.4; O2SAT 93
[2024-04-22 01:00] VITALS: BP 107/73; PULSE 84; RESP 17; TEMP 98.4; O2SAT 95
[2024-04-22 05:00] VITALS: BP 106/66; PULSE 65; RESP 16; TEMP 97.8; O2SAT 93
[2024-04-22 09:00] VITALS: BP 104/61; PULSE 77; RESP 17; TEMP 97.9; O2SAT 97
[2024-04-22 09:49] LABS: Basophils # (auto) 0 10 ^3/uL (0-0.2); Basophils % (auto) 0.2 % (0.0-2.0); Eosinophils # (auto) 0.1 10 ^3/uL (0-0.8); Eosinophils % (auto) 0.6 % (0.0-7.0); Hematocrit 35.7 % (41.0-53.0); Hemoglobin 12.1 g/dL (13.5-17.5); Lymphocytes # (auto) 1.9 10 ^3/uL (0.4-5.4); Lymphocytes % (auto) 20.4 % (10.0-50.0); Mean Corpuscular Hemoglobin 30.6 pg (28.0-32.0); Mean Corpuscular Hgb Conc. 33.8 g/dL (32.0-36.0); Mean Corpuscular Volume 90.3 fL (80.0-100.0); Monocytes # (auto) 0.7 10 ^3/uL (0-1.3); Neutrophils # (auto) 6.7 10 ^3/uL (1.6-8.6); Neutrophils % (auto) 71.8 % (37.0-80.0); Platelet Count (auto) 196 10^3/uL (140-450); Red Blood Cells 3.95 10^6/uL (4.5-5.90); Red Cell Distribution Width 13.9 % (11.8-14.3); White Blood Cell 9.4 10^3/uL (4.4-10.8)
[2024-04-22] MEDS ORDERED: ACET-1304 PO (11:13)
[2024-04-22] MEDS ORDERED: AUG875T PO (11:13)
[2024-04-22] MEDS ORDERED: IBUP1TAB4 PO (11:13)
[2024-04-22 13:00] VITALS: BP 112/78; PULSE 64; RESP 16; TEMP 97.8; O2SAT 96
--- NOTE | 2024-04-22 14:38 | DVHDSRES ---
Discharge Summary Date of Admission Resident Creating Document: CANDACE FREDERICK RESIDENT Apr 20, 2024 at 15:46 Date of Discharge: Apr 22, 2024 Admitting Diagnosis Acute intractable abdominal pain Labs/Diagnostic Data: Laboratory Results Test 04/22/24 09:34 04/21/24 05:48 04/20/24 19:42 04/20/24 13:17 White Blood Count 9.4 10^3/uL (4.4-10.8) Red Blood Count 3.95 10^6/uL (4.5-5.90) Hemoglobin 12.1 g/dL (13.5-17.5) Hematocrit 35.7 % (41.0-53.0) Mean Corpuscular Volume 90.3 fL (80.0-100.0) Mean Corpuscular Hemoglobin 30.6 pg (28.0-32.0) Mean Corpuscular Hemoglobin Concent 33.8 g/dL (32.0-36.0) Red Cell Distribution Width 13.9 % (11.8-14.3) Platelet Count 196 10^3/uL (140-450) Mean Platelet Volume 8.6 fL (6.9-10.8) Neutrophils (%) (Auto) 71.8 % (37.0-80.0) Lymphocytes (%) (Auto) 20.4 % (10.0-50.0) Monocytes (%) (Auto) 7.0 % (0.0-12.0) Eosinophils (%) (Auto) 0.6 % (0.0-7.0) Basophils (%) (Auto) 0.2 % (0.0-2.0) Neutrophils # (Auto) 6.7 10 ^3/uL (1.6-8.6) Lymphocytes # (Auto) 1.9 10 ^3/uL (0.4-5.4) Monocytes # (Auto) 0.7 10 ^3/uL (0-1.3) Eosinophils # (Auto) 0.1 10 ^3/uL (0-0.8) Basophils # (Auto) 0 10 ^3/uL (0-0.2) Nucleated Red Blood Cells 0.0 % Sodium Level 139 mmol/L (136-145) Potassium Level 3.9 mmol/L (3.5-5.1) Chloride Level 107 mmol/L (98-107) Carbon Dioxide Level 25 mmol/L (20-31) Anion Gap 7 (5-15) Blood Urea Nitrogen 14 mg/dL (9-23) Creatinine 1.06 mg/dL (0.700-1.30) Glomerular Filtration Rate Calc 87 mL/min (>90) BUN/Creatinine Ratio 13.2 (10.0-20.0) Serum Glucose 134 mg/dL (74-106) Calcium Level 9.5 mg/dL (8.7-10.4) Total Bilirubin 0.9 mg/dL (0.2-1.0) Aspartate Amino Transferase (AST) 10 U/L (13-40) Alanine Aminotransferase (ALT) 16 U/L (7-40) Alkaline Phosphatase 45 U/L (46-116) Total Protein 6.2 g/dL (5.7-8.2) Albumin 3.8 g/dL (3.2-4.8) Lactic Acid Level 1.3 mmol/L (0.4-2.0) Prothrombin Time 10.9 sec (9.3-11.8) Prothrombin Time INR 1.03 (0.9-1.15) Activated Partial Thromboplast Time 27.3 SEC (24.5-34.5) Other Laboratory Tests 04/22/24 09:34 04/21/24 05:48 Brief Hx & Hospital Course: Patient is a 48-year-old male with no significant past medical history came in due to abdominal pain. According to the patient, the abdominal pain started abruptly at 2am, the pain progressively got worse. Patient notes the pain initially started in the midepigastric region and eventually evolved into a right upper quadrant pain, 9/10 in intensity exacerbated by standing up or touching. Patient also notes having 2 episodes of diarrhea, hot flashes and sweating. CT abdomen pelvis showed appendix measuring 7 mm with fat stranding adjacent to the appendix and right paracolic gutter. Patient underwent laparoscopic appendectomy Hospital course: CT abdomen pelvis showed Appendix measures up to 7 mm with fat stranding adjacent to the appendix and right paracolic gutter. Correlate for acute appendicitis. Mild gastric wall thickening. Correlate for mild gastritis. Patient was started on IV NS at 120 cc/hour and IV Zosyn along with IV ketorolac 20 mg q.6 hours as needed for moderate pain. Patient underwent laparoscopic appendectomy without complication. On the day of discharge, patient noted having 2 bowel movements and passing gas without discomfort. Patient was ambulating without any pain, all 3 incisions were clean without erythema or purulence. Patient was discharged home with Tylenol, ibuprofen and Augmentin 875 mg b.i.d. for 7 days. His hospital course was uncomplicated. General Appearance: Cooperative. Well developed. Well nourished. NAD Head Exam: Normal inspection Neck Exam: Normal inspection. Non-tender. Normal alignment Pulmonary/Respiratory: Chest non-tender. Clear bilateral breath sounds, no crackles, no wheezing. Cardiovascular/Chest: Regular rate and rhythm. No murmurs. No JVD. Peripheral Pulses: 2+ Radial (R). 2+ Radial (L). 2+ Pedal (R). 2+ Pedal (L) Abdominal Exam: Normal bowel sounds. Soft. Three laparoscopic incisions noted without erythema, purulence, no visible veins, Nontender. No hepatospenomegaly. No masses Ankle Exam: Negative ankle edema Lower extremities: Negative lower extremity edema Neuro/Mental Status: A&O x4. Coherent. Thoughts/Psych: Normal thought pattern. Appropriate mood and affect. Good judgement and insight Skin Exam: Normal inspection. Normal color. Warm. Dry Consults/Reason for consult Surgery: acute appendicitis Operations or Procedures ORDERING PHYSICIAN: FARNAZ ROBISON MD PROCEDURE(s): ABPL - CT AB PEL WO CON-NO ORAL OR IV REASON: rlq pain ORDER NUMBER(s): [id number], ACCESSION NUMBER(s): [id number] Exam: CT CT AB PEL WO CON-NO ORAL OR IV History: rlq pain Comparison Study: None available at time of dictation. TECHNIQUE: Multidetector CT of the abdomen and pelvis without contrast. Axial, coronal and sagittal multiplanar reformats were obtained from the axial data set by the technologist. Radiation Dose Information: CT Dose: CTDI volume is 7.83 mGy. Dose-length product is 479.2 mGy*cm FINDINGS: Right basilar atelectasis. Partially visualized heart is unremarkable. Liver, spleen, gallbladder, pancreas and adrenal glands unremarkable. Kidneys, ureters and urinary bladder unremarkable. Prostate is unremarkable. Tiny hiatal hernia. Mild gastric wall thickening. Small bowel loops unremarkable. Appendix measures up to 7 mm with fat stranding adjacent to the appendix and right paracolic gutter. Scattered colonic diverticulosis without diverticulitis. The large bowel is otherwise unremarkable. No evidence of intraperitoneal free air or free fluid. No evidence of aortic aneurysm. Minimal atherosclerotic calcification of the aorta and bilateral iliacs. Small fat containing left inguinal hernia. Minimal fat stranding of the bilateral posterolateral hip subcutaneous fat. No destructive Osseous lesions are noted. IMPRESSION: Appendix measures up to 7 mm with fat stranding adjacent to the appendix and right paracolic gutter. Correlate for acute appendicitis. Mild gastric wall thickening. Correlate for mild gastritis. DATE OF SURGERY: 04/20/2024 PREOPERATIVE DIAGNOSES: * Acute appendicitis. * Intra-abdominal abscess. POSTOPERATIVE DIAGNOSES: * Acute appendicitis. * Intra-abdominal abscess. PROCEDURE: Drainage of intra-abdominal abscess with laparoscopic appendectomy. SURGEON: Dr. Lux Cuadra. EPIC INTERFACE ANALYST: None. ANESTHESIA: General. ESTIMATED BLOOD LOSS: Close to 25 mL. DRAINS: No drains were used. COMPLICATIONS: No complications were encountered. DESCRIPTION OF PROCEDURE: The patient was prepped and draped in the usual sterile fashion in the supine position, and a supraumbilical incision was applied and was taken down to the fascia. The Veress needle was introduced, and CO2 insufflation was started to a pressure of 15 mmHg. The needle was withdrawn, replaced by the 12 mm trocar, and a telescope introduced and the appendix was found acutely inflamed, distended and closely adherent to the right lower abdomen. Intraabdominal abscess was also noted. Two 5 mm ports were applied more inferiorly, one above the symphysis, one between the upper two. The patient was placed in Trendelenburg and in right upper lateral position, the abscess was drained out. The camera was moved to the lowermost 5 mm port. The operative ports were used for surgery. The mesoappendix was clipped at the base, divided distal to that using Harmonic device. The base of the appendix was cleared for transection using the Endo-HANNA stapling device, and the appendix was released in this fashion and was retrieved from the supraumbilical wound in the Endo-Catch bag without any complication. Hemostasis was secured. Irrigation fluid was removed. The port sites were free from bleeding. Marina powder was applied to the right lower quadrant for hemostasis, as well as SNoW coagulant; and with this being done, the patient was then placed back supine, the trocars were free from bleeding, the CO2 was let out, the irrigation fluid was removed, and Endo-Close suture used for the fascial closure of the supraumbilical wound. All the ports were withdrawn after all the CO2 been let out, and the patient was placed in supine, the wounds were then brought together using 3-0 Monocryl suture in a subcuticular fashion. Surgical glue was applied. The patient tolerated the procedure well, and was taken back to recovery room in stable condition. Condition at Discharge: Good Final Diagnosis/Problems List Acute appendicitis, status post laparoscopic appendectomy, Gastritis Discharge Disposition: Home Discharge Instruct/Medications Diet: Regular Diet comment: continue soft diet, advance as tolerated Activity: No Restrictions, As Tolerated Follow Up/Referral: please follow up with pcp in 1-2 weeks please follow up in [facility] clinic Medications: tylenol 500 as needed for 7 days ibuprufen 400 as needed for 2 days augmentin 875mg twice a day for 7 days Discharge Statement: "Patient was advised to return to the ER or call 911 if any headaches, dizziness, shortness of breath, chest pain, abdominal pain, bleeding, fevers, or worsening of medical condition. Patient was counseled about treatment plan, medications, possible side effects, patientverbalized understanding. All questions were answered to the best of my ability. This discharge took greater then 30 minutes in planning, reviewing documentation, counseling the patient, and discussing with other team members." ASSESSMENT ASSESSMENT Assessment Acute appendicitis, status post laparoscopic appendectomy, Gastritis Date of Service: Apr 22, 2024 Billing Provider: TETE ESCALANTE MD Common Visit Codes: [id number]/OBS DISCH DAY >30min CANDACE FREDERICK Apr 22, 2024 14:38 TETE ESCALANTE MD Apr 24, 2024 21:48
== END 2024-04-22 15:15 | disposition home or self-care (01) | DRG 399 ==
LOC: ER 12:33 → OVERFLOW 15:46 → WEST WING 18:35
PROVIDERS: ADMIT Student in an Organized Health Care Education/Training Program; ATTEND Student in an Organized Health Care Education/Training Program
PROC: 0DTJ4ZZ Resection of Appendix, Percutaneous Endoscopic Approach (ICD-10-PCS; principal; 2024-04-20 16:09)
DX: K35.33 Acute appendicitis with perforation, localized peritonitis, and gangrene, with abscess (principal); K29.00 Acute gastritis without bleeding; F17.210 Nicotine dependence, cigarettes, uncomplicated
CPT/HCPCS: 36415; 74176; 80048; 80053; 83605; 85025; 85610; 85730; 86850; 86900; 86901; 87040; G0378; J0330; J1100; J1885; J2250; J2405; J2543; J2704